=== PATIENT | male | born 1930 | race Caucasian/White ===

== ENCOUNTER 2016-10-23 19:31 | Emergency (ER) | payer MEDICARE, BC ==
[2016-10-23] MEDS ORDERED: ONDANSETRON HCL 4 MG/2 ML SOL ONE (19:50)
[2016-10-23] MEDS ORDERED: ONDANSETRON HCL 4 MG/2 ML SOL IV ONE (19:50)
[2016-10-23] MEDS: SODIUM CHLORIDE 0.9% FLUSH 10 ML SOL IV PRN ×2 (19:51→19:59)
[2016-10-23 20:01] LABS: BASOPHILS % (AUTO) 1 % (0-3); EOSINOPHILS % (AUTO) 6 % (0-9); HEMATOCRIT 35 % (39-53); MEAN CORPUSCULAR HGB CONC 34.4 gm/dl (32.0-36.0); MEAN CORPUSCULAR VOLUME 96 fL (80-100); MONOCYTES % (AUTO) 8.7 % (0-12); NEUTROPHILS % (AUTO) 56.2 % (37-80)
[2016-10-23 20:11] VITALS: TEMP 98
[2016-10-23 20:21] LABS: CALCIUM 8.2 mg/dl (8.5-10.1); POTASSIUM 3.3 mMol/L (3.5-5.1)
[2016-10-23 20:38] VITALS: BP 118/66; PULSE 72; RESP 19; O2SAT 95
[2016-10-23] MEDS ORDERED: POTASSIUM CHLORIDE 2 MEQ/ML 20 MEQ, LIDOCAINE HCL 1% MDV 2 ML in SODIUM CHLORIDE 0.9% 2... IV ONE (20:42)
[2016-10-23 20:47] LABS: APPEARANCE,URINE Clear; BILIRUBIN,URINE NEGATIVE (NEGATIVE); COLOR,URINE Yellow; GLUCOSE, URINE (UA) NEGATIVE (NEGATIVE); KETONES,URINE NEGATIVE (NEGATIVE); LEUKOCYTE ESTERASE ,URINE NEGATIVE (NEGATIVE); NITRATE,URINE NEGATIVE (NEGATIVE); OCCULT BLOOD,URINE NEGATIVE (NEG-TRACE); PH,URINE 6.5; UROBILINOGEN,URINE 0.2 (0.2-1.0 EU)
[2016-10-23] MEDS ORDERED: LIDOCAINE HCL 2% MPF SOL ONE (20:52)
[2016-10-23] MEDS ORDERED: LIDOCAINE HCL 1% MPF SOL ONE (20:53)
[2016-10-23] MEDS ORDERED: POTASSIUM CHLORIDE 2 MEQ/ML SOL IV ONE (20:53)
[2016-10-23 20:54] LABS: RBC,URINE NEG (0-3AV/HPF); WBC,URINE NEG (0-5AV/HPF)
== END 2016-10-23 21:00 | disposition short-term general hospital (02) | DRG 66 ==
LOC: ED 19:31
DX: I63.9 Cerebral infarction, unspecified (principal); I50.9 Heart failure, unspecified; E87.6 Hypokalemia; R47.81 Slurred speech; R29.810 Facial weakness; R53.1 Weakness; R29.703 NIHSS score 3; Z79.01 Long term (current) use of anticoagulants; R11.2 Nausea with vomiting, unspecified; R40.2362 Coma scale, best motor response, obeys commands, at arrival to emergency department; R40.2142 Coma scale, eyes open, spontaneous, at arrival to emergency department; R40.2252 Coma scale, best verbal response, oriented, at arrival to emergency department; W19.XXXA Unspecified fall, initial encounter
CPT/HCPCS: 36415; 70450; 70460; 72125; 72126; 80053; 81001; 83880; 84484; 85025; 85610; 93005; 96374; 99291; J2405; J3480; J2001

== ENCOUNTER 2017-03-11 20:12 | Inpatient (IN) | payer MEDICARE, BC ==
[2017-03-11] MEDS ORDERED: NITROGLYCERIN 0.4 MG TAB SL PRN (20:20)
[2017-03-11] MEDS ORDERED: ASPIRIN 81 MG CHEWABLE CTB PO STA (20:20)
[2017-03-11 20:29] LABS: BASOPHILS % (AUTO) 1 % (0-3); EOSINOPHILS % (AUTO) 4 % (0-9); HEMATOCRIT 37 % (39-53); MEAN CORPUSCULAR HGB CONC 35.2 gm/dl (32.0-36.0); MEAN CORPUSCULAR VOLUME 92 fL (80-100); MONOCYTES % (AUTO) 10.5 % (0-12); NEUTROPHILS % (AUTO) 67.4 % (37-80)
[2017-03-11 20:41] LABS: ALT 37 IU/L (14-63); CALCIUM 8.6 mg/dl (8.5-10.1); GLOM FILT RATE 59 mL/min (>60); POTASSIUM 3.4 mMol/L (3.5-5.1); SODIUM 141 mMol/L (136-145)
[2017-03-11] MEDS ORDERED: ALBUTEROL NEB SOL 2.5MG/3ML 1 VIAL SOL NEB PRN (21:12)
[2017-03-11] MEDS ORDERED: ACETAMINOPHEN 325 MG PO PRN (21:33)
[2017-03-11] MEDS: SOLUMEDROL 125 MG/2 ML 125 MG/2 ML PDS IV SCH (22:08)
[2017-03-11] MEDS: CEFTRIAXONE 1 GM (PREMIX) 1 GM/50 ML SOL IV SCH (22:09)
[2017-03-11] MEDS: ALBUTEROL/IPRATROPIUM 1 VIAL SOL INH SCH (22:10)
[2017-03-12] MEDS: SOLUMEDROL 125 MG/2 ML 125 MG/2 ML PDS IV SCH ×4 (03:38→20:36)
[2017-03-12] MEDS: SODIUM CHLORIDE 0.9% FLUSH 10 ML SOL IV PRN ×4 (03:38→20:40)
[2017-03-12] MEDS: ALBUTEROL/IPRATROPIUM 1 VIAL SOL INH SCH ×4 (03:38→20:31)
[2017-03-12] MEDS ORDERED: NITROGLYCERIN 0.4 MG TAB SL PRN (06:32)
[2017-03-12] MEDS: FUROSEMIDE 40 MG TAB PO SCH ×2 (07:52→13:02)
[2017-03-12 08:53] LABS: APPEARANCE,URINE Slightly Cloudy; BILIRUBIN,URINE NEGATIVE (NEGATIVE); COLOR,URINE Yellow; GLUCOSE, URINE (UA) NEGATIVE (NEGATIVE); KETONES,URINE NEGATIVE (NEGATIVE); LEUKOCYTE ESTERASE ,URINE NEGATIVE (NEGATIVE); NITRATE,URINE NEGATIVE (NEGATIVE); OCCULT BLOOD,URINE NEGATIVE (NEG-TRACE); UROBILINOGEN,URINE 0.2 (0.2-1.0 EU)
[2017-03-12] MEDS ORDERED: Non-Formulary Medication MISC (Budesonide/Formoterol 160/4.5 2 PUFF) INH SCH (09:00)
[2017-03-12 09:05] LABS: RBC,URINE 0-1 (0-3AV/HPF); WBC,URINE 0-3 (0-5AV/HPF)
[2017-03-12] MEDS: CARVEDILOL 12.5 MG TAB PO SCH ×2 (09:45→18:20)
[2017-03-12] MEDS: ATORVASTATIN 10 MG TAB PO SCH (09:46)
[2017-03-12] MEDS: LISINOPRIL 5 MG TAB PO SCH (09:46)
[2017-03-12] MEDS: LOSARTAN POTASSIUM 50 MG TAB PO SCH (09:46)
[2017-03-12] MEDS: AZITHROMYCIN 250 MG TAB PO SCH (09:47)
[2017-03-12] MEDS ORDERED: PATIENT EDUCATION 1 MISC PRN (14:25)
[2017-03-12] MEDS ORDERED: WARFARIN SODIUM 5 MG TAB PO SCH (18:00)
[2017-03-12] MEDS: CEFTRIAXONE 1 GM (PREMIX) 1 GM/50 ML SOL IV SCH (20:35)
[2017-03-12] MEDS: BUDESONIDE/FORMOTEROL 160/4.5 AER INH SCH (20:36)
[2017-03-12] MEDS ORDERED: ACETAMINOPHEN 325 MG PO SCH (21:00)
[2017-03-13] MEDS: ALBUTEROL/IPRATROPIUM 1 VIAL SOL INH SCH ×2 (04:20→09:02)
[2017-03-13] MEDS: SOLUMEDROL 125 MG/2 ML 125 MG/2 ML PDS IV SCH ×2 (04:20→11:09)
[2017-03-13] MEDS: SODIUM CHLORIDE 0.9% FLUSH 10 ML SOL IV PRN (04:23)
[2017-03-13 07:43] VITALS: BP 138/68; TEMP 97.2
[2017-03-13] MEDS: LOSARTAN POTASSIUM 50 MG TAB PO SCH (08:23)
[2017-03-13] MEDS: FUROSEMIDE 40 MG TAB PO SCH ×2 (08:23→12:39)
[2017-03-13] MEDS: BUDESONIDE/FORMOTEROL 160/4.5 AER INH SCH (08:23)
[2017-03-13] MEDS: LISINOPRIL 5 MG TAB PO SCH (08:23)
[2017-03-13] MEDS: CARVEDILOL 12.5 MG TAB PO SCH (08:23)
[2017-03-13] MEDS: ATORVASTATIN 10 MG TAB PO SCH (08:23)
[2017-03-13] MEDS: AZITHROMYCIN 250 MG TAB PO SCH (08:24)
[2017-03-13 11:09] VITALS: PULSE 80; RESP 24; O2SAT 96
== END 2017-03-13 12:50 | disposition home or self-care (01) | DRG 195 ==
LOC: ED 20:12 → ACUTE CARE 21:08
PROVIDERS: ADMIT Family Medicine; ATTEND Family Medicine
DX: J18.1 Lobar pneumonia, unspecified organism (principal); R06.00 Dyspnea, unspecified; I48.2 Chronic atrial fibrillation; J43.1 Panlobular emphysema; Z79.01 Long term (current) use of anticoagulants
CPT/HCPCS: 36415; 71010; 80053; 81001; 82550; 83880; 84132; 84484; 85025; 85378; 85610; 87040; 93005; 94150; 94640; 94760; 99222; 99231; 99238; 99284; J0696; J2930; J7603; J7620

== ENCOUNTER 2017-05-16 20:43 | Emergency (ER) | payer MEDICARE, BC ==
[2017-05-16 21:35] LABS: BASOPHILS % (AUTO) 1 % (0-3); EOSINOPHILS % (AUTO) 8 % (0-9); HEMATOCRIT 34 % (39-53); MEAN CORPUSCULAR HGB CONC 33.6 gm/dl (32.0-36.0); MONOCYTES % (AUTO) 10.9 % (0-12); NEUTROPHILS % (AUTO) 53.8 % (37-80)
[2017-05-16 21:39] LABS: MEAN CORPUSCULAR VOLUME 99 fL (80-100)
[2017-05-16 21:51] VITALS: TEMP 98.5
[2017-05-16 21:51] LABS: CALCIUM 8.5 mg/dl (8.5-10.1); GLOM FILT RATE 55 mL/min (>60); POTASSIUM 3.7 mMol/L (3.5-5.1); SODIUM 146 mMol/L (136-145)
[2017-05-17 03:26] VITALS: RESP 18
[2017-05-17 03:27] VITALS: BP 117/59; PULSE 66; O2SAT 96
== END 2017-05-16 22:34 | disposition home or self-care (01) | DRG 312 ==
LOC: ED 20:43
DX: R55 Syncope and collapse (principal)
CPT/HCPCS: 36415; 70450; 80048; 83880; 84484; 85025; 85610; 93005; 99284